=== PATIENT | female | born 1975 | race Caucasian/White ===

== ENCOUNTER 2021-02-05 10:06 | Outpatient (REF) | payer OTHER, MEDICAID, SELFPAY ==
[2021-02-05 11:17] LABS: MANUAL DIFF FLAG NO
[2021-02-05 11:28] LABS: Basophils Absolute Auto 0.1 X10*3/uL (0.0-0.2); Basophils Percent Auto 0.6 % (0-2); Eosinophils Absolute Auto 0.1 X10*3/uL (0.0-0.4); Eosinophils Percent Auto 1.1 % (0-4); Hematocrit 40.2 % (37-47); Hemoglobin 13.2 g/dl (12.0-16.0); Imm Gran Abs Auto 0.03 X10*3/uL (0.00-0.03); Imm Gran Pct Auto 0.3 % (0.0-0.4); Mean Corpuscular HGB Conc 32.8 g/dl (31.0-35.0); Mean Corpuscular Hemoglobin 29.6 pg (27.0-33.0); Mean Corpuscular Volume 90.1 fL (80-98); Mean Platelet Volume 9.7 fL (9.4-12.3); Monocytes Absolute Auto 0.8 X10*3/uL (0.1-1.2); Monocytes Percent Auto 6.9 % (2-11); Neutrophils Absolute Auto 8.3 X10*3/uL (2.0-8.3); Neutrophils Percent Auto 73.1 % (45-73); Platelet Count 368 X10*3/uL (160-400); Red Blood Count 4.46 X10*6/uL (4.20-5.50); Red Cell Distribution Width 12.7 % (11.0-16.0); White Blood Count 11.3 X10*3/uL (4.8-10.8)
[2021-02-05 11:43] LABS: Alanine Aminotransferase 16 U/L (0-31); Albumin Level 4.3 g/dL (3.5-5.0); Alkaline Phosphatase 102 U/L (39-117); Anion Gap 15 (12-20); Aspartate Amino Transferase 16 U/L (5-31); Bilirubin Direct 0.3 mg/dL (0.0-0.5); Bilirubin Total 0.6 mg/dL (0.0-1.0); Blood Urea Nitrogen 10 mg/dL (9-16); Calcium 9.2 mg/dL (8.4-10.2); Carbon Dioxide 25 mmol/L (22-29); Chloride 104 mmol/L (96-108); Estimated Glomerular Filt Rate > 60; Glucose Random 98 mg/dL (60-115); Potassium 4.5 mmol/L (3.3-5.1); Sodium 139 mmol/L (135-145); Total Protein 7.2 g/dL (6.5-8.0)
== END 2021-02-05 10:07 | disposition home or self-care (01) ==
LOC: HO.HMGCLDS 10:06
PROVIDERS: PCP Internal Medicine; Visit Provider Nurse Practitioner Family
DX: R10.9 Unspecified abdominal pain (principal)
CPT/HCPCS: 36415; 80048; 80076; 85025

== ENCOUNTER 2021-02-25 09:36 | Outpatient (REF) | payer OTHER, MEDICAID, SELFPAY ==
--- NOTE | ~2021-02-25 | XR_ITS ---
EXAMINATION: XR FOOT, RIGHT XR FOOT, LEFT CLINICAL INFORMATION: Right and left foot pain. COMPARISON: Right foot radiographs dated 06/28/2015 TECHNIQUE: AP, oblique, and lateral views of the right and left foot. FINDINGS: RIGHT FOOT: No acute fracture or dislocation. No joint space narrowing or marginal osteophytes. No osseous erosion. Plantar and dorsal calcaneal enthesophytes, increased when compared to the prior examination. LEFT FOOT: No acute fracture or dislocation. No joint space narrowing or marginal osteophytes. No osseous erosion. Plantar and dorsal calcaneal enthesophytes. XR/XR foot RT min 3V IMPRESSION: RIGHT FOOT: Plantar and dorsal calcaneal spurs, increased in prominence when compared to the prior examination. LEFT FOOT: Plantar and dorsal calcaneal spurs.
--- NOTE | ~2021-02-25 | XR_ITS ---
EXAMINATION: XR FOOT, RIGHT XR FOOT, LEFT CLINICAL INFORMATION: Right and left foot pain. COMPARISON: Right foot radiographs dated 06/28/2015 TECHNIQUE: AP, oblique, and lateral views of the right and left foot. FINDINGS: RIGHT FOOT: No acute fracture or dislocation. No joint space narrowing or marginal osteophytes. No osseous erosion. Plantar and dorsal calcaneal enthesophytes, increased when compared to the prior examination. LEFT FOOT: No acute fracture or dislocation. No joint space narrowing or marginal osteophytes. No osseous erosion. Plantar and dorsal calcaneal enthesophytes. XR/XR foot LT min 3V IMPRESSION: RIGHT FOOT: Plantar and dorsal calcaneal spurs, increased in prominence when compared to the prior examination. LEFT FOOT: Plantar and dorsal calcaneal spurs.
== END 2021-02-25 09:37 | disposition home or self-care (01) ==
LOC: HO.HMGCX 09:36
PROVIDERS: PCP Internal Medicine; Visit Provider Nurse Practitioner Family
DX: M79.672 Pain in left foot (principal); M79.671 Pain in right foot; M77.50 Other enthesopathy of unspecified foot and ankle
CPT/HCPCS: 73630

== ENCOUNTER 2021-03-06 10:35 | Outpatient (REF) | payer OTHER, MEDICAID, SELFPAY ==
[2021-03-06 14:42] LABS: C Reactive Protein 0.61 mg/dL (< or = 0.50); Cholesterol 193 mg/dL; HDL Cholesterol 57 mg/dL; LDL Cholesterol Calculated 100 mg/dl; Triglycerides 183 mg/dL
[2021-03-06 15:18] LABS: Erythrocyte Sedimentation Rate 16 MM/HR (0-20)
== END 2021-03-06 10:36 | disposition home or self-care (01) ==
LOC: HO.HMGCLDS 10:35
PROVIDERS: PCP Internal Medicine; Visit Provider Internal Medicine
DX: M19.90 Unspecified osteoarthritis, unspecified site (principal)
CPT/HCPCS: 36415; 80061; 85652; 86140; 86431

== ENCOUNTER 2021-03-25 12:00 | Outpatient (REF) | payer OTHER, MEDICAID, SELFPAY | END 2021-03-25 12:01 | disposition home or self-care (01) | LOC: HO.LNP 12:00 | PROVIDERS: Visit Provider Hospitalist | DX: M25.50 Pain in unspecified joint (principal); Z20.822 Contact with and (suspected) exposure to COVID-19 | CPT/HCPCS: U0003; U0005 ==

== ENCOUNTER 2021-04-04 14:08 | Outpatient (REF) | payer OTHER, MEDICAID, SELFPAY ==
[2021-04-04 17:22] LABS: TSH reflex Free T4 1.58 uIU/mL (0.32-4.0)
== END 2021-04-04 14:09 | disposition home or self-care (01) ==
LOC: HO.HMGCLDS 14:08
PROVIDERS: PCP Internal Medicine; Visit Provider Internal Medicine
DX: F41.1 Generalized anxiety disorder (principal)
CPT/HCPCS: 36415; 84443

== ENCOUNTER 2021-05-23 11:13 | Outpatient (REF) | payer OTHER, MEDICAID, SELFPAY ==
--- NOTE | ~2021-05-23 | MM_ITS ---
EXAMINATION: MM SCREENING DIGITAL BREAST TOMOSYNTHESIS, BILATERAL CLINICAL INFORMATION: Screening. Asymptomatic. The lifetime risk of breast cancer based on the Tyrer-Cuzick Model is 9%. COMPARISON: Outside mammography: 12/01/2017, 09/16/2016, 09/09/2016 ([facility]). TECHNIQUE: Digital breast tomosynthesis is performed in both the craniocaudal and mediolateral oblique views along with computer-aided detection (CAD). Synthesized 2D images are generated from the tomosynthesis. FINDINGS: The breasts are heterogeneously dense, which may obscure small masses (ACR BI-RADS breast composition Category c). There are no significant masses, abnormal calcifications, or other abnormalities. Parenchymal pattern is similar to prior outside exam. There is no developing density. The axilla and skin contours are unremarkable. No significant changes. MM/MM tomosynthesis screening BI IMPRESSION: No mammographic evidence of malignancy. ASSESSMENT: BI-RADS 1: Negative RECOMMENDATION: Routine annual mammography screening. This patient's information was entered into a reminder system with a target due date for their next mammogram.
== END 2021-05-23 11:14 | disposition home or self-care (01) ==
LOC: HO.MAMMO 11:13
PROVIDERS: Visit Provider Internal Medicine
DX: Z12.31 Encounter for screening mammogram for malignant neoplasm of breast (principal)
CPT/HCPCS: 77063; 77067

== ENCOUNTER 2021-10-01 08:57 | Outpatient (REF) | payer OTHER, MEDICAID, SELFPAY ==
[2021-10-01 11:33] LABS: MANUAL DIFF FLAG NO
[2021-10-01 11:40] LABS: Basophils Absolute Auto 0.1 X10*3/uL (0.0-0.2); Basophils Percent Auto 0.6 % (0-2); Eosinophils Absolute Auto 0.2 X10*3/uL (0.0-0.4); Eosinophils Percent Auto 1.5 % (0-4); Hematocrit 35.7 % (37.0-47.0); Hemoglobin 10.8 g/dl (12.0-16.0); Imm Gran Abs Auto 0.08 X10*3/uL (0.00-0.03); Imm Gran Pct Auto 0.6 % (0.0-0.4); Lymphocytes Absolute Auto 3.7 X10*3/uL (1.2-4.9); Lymphocytes Percent Auto 25.5 % (20-40); Mean Corpuscular HGB Conc 30.3 g/dl (31.0-35.0); Mean Corpuscular Hemoglobin 25.7 pg (27.0-33.0); Mean Corpuscular Volume 84.8 fL (80.0-98.0); Mean Platelet Volume 9.3 fL (9.4-12.3); Monocytes Percent Auto 7.2 % (2-11); Neutrophils Absolute Auto 9.3 x10*3/uL (2.0-8.3); Neutrophils Percent Auto 64.6 % (45-73); Platelet Count 485 X10*3/uL (160-400); Red Blood Count 4.21 X10*6/uL (4.20-5.50); Red Cell Distribution Width 14.6 % (11.0-16.0); White Blood Count 14.4 X10*3/uL (4.8-10.8)
[2021-10-01 12:01] LABS: Alanine Aminotransferase 13 U/L (0-31); Albumin Level 3.7 g/dL (3.5-5.0); Alkaline Phosphatase 88 U/L (39-117); Anion Gap 12 (12-20); Aspartate Amino Transferase 10 U/L (5-31); Bilirubin Total 0.5 mg/dL (0.0-1.0); Blood Urea Nitrogen 13 mg/dL (9-16); Calcium 9.1 mg/dL (8.4-10.2); Carbon Dioxide 25 mmol/L (22-29); Chloride 104 mmol/L (96-108); Estimated Glomerular Filt Rate > 60; Glucose Random 87 mg/dL (60-115); Potassium 4.2 mmol/L (3.3-5.1); Sodium 137 mmol/L (135-145)
[2021-10-01 12:08] LABS: Ferritin 5 ng/mL (10-250); TSH reflex Free T4 2.11 uIU/mL (0.32-4.0)
== END 2021-10-01 08:58 | disposition home or self-care (01) ==
LOC: HO.HMGCLDS 08:57
PROVIDERS: Visit Provider Internal Medicine
DX: F41.1 Generalized anxiety disorder (principal); N92.0 Excessive and frequent menstruation with regular cycle; M19.90 Unspecified osteoarthritis, unspecified site
CPT/HCPCS: 36415; 80053; 82728; 84443; 85025

== ENCOUNTER 2022-01-02 12:07 | Outpatient (REF) | payer OTHER, MEDICAID, SELFPAY ==
[2022-01-02 13:54] LABS: MANUAL DIFF FLAG NO
[2022-01-02 14:11] LABS: Basophils Absolute Auto 0.1 X10*3/uL (0.0-0.2); Basophils Percent Auto 0.4 % (0-2); Eosinophils Absolute Auto 0.1 X10*3/uL (0.0-0.4); Eosinophils Percent Auto 0.5 % (0-4); Hematocrit 39.5 % (37.0-47.0); Hemoglobin 12.5 g/dl (12.0-16.0); Imm Gran Abs Auto 0.08 X10*3/uL (0.00-0.03); Imm Gran Pct Auto 0.5 % (0.0-0.4); Lymphocytes Absolute Auto 2.1 X10*3/uL (1.2-4.9); Mean Corpuscular HGB Conc 31.6 g/dl (31.0-35.0); Mean Corpuscular Hemoglobin 28.2 pg (27.0-33.0); Mean Platelet Volume 9.6 fL (9.4-12.3); Monocytes Absolute Auto 0.8 X10*3/uL (0.1-1.2); Monocytes Percent Auto 4.8 % (2-11); Neutrophils Absolute Auto 13.1 x10*3/uL (2.0-8.3); Neutrophils Percent Auto 80.8 % (45-73); Platelet Count 456 X10*3/uL (160-400); Red Blood Count 4.44 X10*6/uL (4.20-5.50); Red Cell Distribution Width 14.1 % (11.0-16.0); White Blood Count 16.2 X10*3/uL (4.8-10.8)
[2022-01-02 14:32] LABS: Ferritin 11 ng/mL (10-250)
[2022-01-02 14:38] LABS: Vitamin B12 478 pg/mL (200-900)
[2022-01-08 12:16] LABS: Vitamin D 25-OH, D2 <4 ng/mL; Vitamin D 25-OH, D3 26 ng/mL; Vitamin D 25-OH, Total 26 ng/mL (30-100)
== END 2022-01-02 12:08 | disposition home or self-care (01) ==
LOC: HO.HMGCLDS 12:07
PROVIDERS: PCP Internal Medicine; Visit Provider Internal Medicine
DX: D50.9 Iron deficiency anemia, unspecified (principal); E55.9 Vitamin D deficiency, unspecified
CPT/HCPCS: 36415; 82306; 82607; 82728; 85025

== ENCOUNTER 2022-04-05 09:20 | Outpatient (REF) | payer BC, MEDICAID, SELFPAY ==
[2022-04-05 11:11] LABS: MANUAL DIFF FLAG NO
[2022-04-05 11:21] LABS: Basophils Absolute Auto 0.1 X10*3/uL (0.0-0.2); Basophils Percent Auto 0.6 % (0-2); Eosinophils Absolute Auto 0.2 X10*3/uL (0.0-0.4); Eosinophils Percent Auto 1.3 % (0-4); Hematocrit 41.6 % (37.0-47.0); Hemoglobin 13.2 g/dl (12.0-16.0); Imm Gran Abs Auto 0.05 X10*3/uL (0.00-0.03); Imm Gran Pct Auto 0.4 % (0.0-0.4); Lymphocytes Absolute Auto 3.5 X10*3/uL (1.2-4.9); Lymphocytes Percent Auto 26.9 % (20-40); Mean Corpuscular HGB Conc 31.7 g/dl (31.0-35.0); Mean Corpuscular Hemoglobin 29.1 pg (27.0-33.0); Mean Corpuscular Volume 91.6 fL (80.0-98.0); Mean Platelet Volume 9.7 fL (9.4-12.3); Monocytes Absolute Auto 0.8 X10*3/uL (0.1-1.2); Monocytes Percent Auto 6.2 % (2-11); Neutrophils Absolute Auto 8.4 x10*3/uL (2.0-8.3); Neutrophils Percent Auto 64.6 % (45-73); Platelet Count 408 X10*3/uL (160-400); Red Blood Count 4.54 X10*6/uL (4.20-5.50); Red Cell Distribution Width 15.7 % (11.0-16.0)
[2022-04-05 11:40] LABS: Alanine Aminotransferase 20 U/L (0-31); Albumin Level 4.1 g/dL (3.5-5.0); Alkaline Phosphatase 98 U/L (39-117); Anion Gap 15 (12-20); Aspartate Amino Transferase 15 U/L (5-31); Bilirubin Total 0.6 mg/dL (0.0-1.0); Blood Urea Nitrogen 16 mg/dL (9-16); Calcium 9.2 mg/dL (8.4-10.2); Carbon Dioxide 22 mmol/L (22-29); Chloride 105 mmol/L (96-108); Cholesterol 218 mg/dL; Estimated Glomerular Filt Rate > 60; Glucose Fasting 90 mg/dL (60-99); HDL Cholesterol 79 mg/dL; LDL Cholesterol Calculated 117 mg/dl; Potassium 4.3 mmol/L (3.3-5.1); Sodium 138 mmol/L (135-145); Total Protein 7.3 g/dL (6.5-8.0); Triglycerides 111 mg/dL
[2022-04-05 11:45] LABS: Ferritin 17 ng/mL (10-250)
[2022-04-07 05:38] LABS: Vitamin B12 425 pg/mL (200-900)
[2022-04-09 16:02] LABS: Vitamin D 25-OH, D2 <4 ng/mL; Vitamin D 25-OH, D3 32 ng/mL; Vitamin D 25-OH, Total 32 ng/mL (30-100)
== END 2022-04-05 09:21 | disposition home or self-care (01) ==
LOC: HO.HMGCLDS 09:20
PROVIDERS: PCP Internal Medicine; Visit Provider Internal Medicine
DX: Z00.01 Encounter for general adult medical examination with abnormal findings (principal); E55.9 Vitamin D deficiency, unspecified; D50.9 Iron deficiency anemia, unspecified; M06.9 Rheumatoid arthritis, unspecified; E66.09 Other obesity due to excess calories; F17.200 Nicotine dependence, unspecified, uncomplicated
CPT/HCPCS: 36415; 80053; 80061; 82306; 82607; 82728; 85025

== ENCOUNTER 2022-05-27 10:33 | Outpatient (REF) | payer BC, MEDICAID, SELFPAY ==
--- NOTE | ~2022-05-27 | MM_ITS ---
EXAMINATION: MM SCREENING DIGITAL BREAST TOMOSYNTHESIS, BILATERAL CLINICAL INFORMATION: Screening. Asymptomatic. The lifetime risk of breast cancer based on the Tyrer-Cuzick Model is 9%. COMPARISON: Mammography: 05/23/2021, outside mammography 12/01/2017, 09/16/2016, 09/09/2016 ([facility]) TECHNIQUE: Digital breast tomosynthesis is performed in both the craniocaudal and mediolateral oblique views along with computer-aided detection (CAD). Synthesized 2D images are generated from the tomosynthesis. FINDINGS: The breasts are heterogeneously dense, which may obscure small masses (ACR BI-RADS breast composition Category c). Breast tissue composition borders on average fibroglandular. Parenchymal pattern is similar to prior studies. No developing density or architectural abnormality. There are no significant masses, abnormal calcifications, or other abnormalities. Axilla and skin contours are unremarkable. MM/MM tomosynthesis screening BI IMPRESSION: No mammographic evidence of malignancy. ASSESSMENT: BI-RADS 1: Negative RECOMMENDATION: Routine annual mammography screening. This patient's information was entered into a reminder system with a target due date for their next mammogram.
== END 2022-05-27 10:34 | disposition home or self-care (01) ==
LOC: HO.MAMMO 10:33
PROVIDERS: PCP Internal Medicine; Visit Provider Internal Medicine
DX: Z12.31 Encounter for screening mammogram for malignant neoplasm of breast (principal)
CPT/HCPCS: 77063; 77067

== ENCOUNTER 2022-08-08 09:51 | Outpatient (REF) | payer BC, MEDICAID, SELFPAY ==
[2022-08-08 11:50] LABS: Alanine Aminotransferase 21 U/L (0-31); Albumin Level 4.1 g/dL (3.5-5.0); Alkaline Phosphatase 105 U/L (39-117); Anion Gap 14 (12-20); Aspartate Amino Transferase 14 U/L (5-31); Bilirubin Total 0.7 mg/dL (0.0-1.0); Blood Urea Nitrogen 10 mg/dL (9-16); Calcium 9.4 mg/dL (8.4-10.2); Carbon Dioxide 24 mmol/L (22-29); Chloride 104 mmol/L (96-108); Estimated Glomerular Filt Rate > 60; Glucose Random 89 mg/dL (60-115); Iron 63 mcg/dL (30-160); Percent Iron Saturation 19 % (15-50); Potassium 4.2 mmol/L (3.3-5.1); Sodium 138 mmol/L (135-145); Total Iron Binding Capacity 332 mcg/dL (228-428); Total Protein 7.1 g/dL (6.5-8.0); Unsaturated Iron Binding 269 ug/dL
[2022-08-08 12:11] LABS: TSH reflex Free T4 2.37 uIU/mL (0.32-4.0)
[2022-08-10 07:18] LABS: Follicle Stimulating Hormone 7.1 mIU/mL; Lutenizing Hormone 13.2 mIU/mL
[2022-08-14 14:28] LABS: Vitamin D 25-OH, D2 <4 ng/mL; Vitamin D 25-OH, D3 35 ng/mL; Vitamin D 25-OH, Total 35 ng/mL (30-100)
== END 2022-08-08 09:52 | disposition home or self-care (01) ==
LOC: HO.HMGCLDS 09:51
PROVIDERS: Visit Provider Internal Medicine
DX: M06.9 Rheumatoid arthritis, unspecified (principal); D64.9 Anemia, unspecified; E55.9 Vitamin D deficiency, unspecified; D50.9 Iron deficiency anemia, unspecified; N92.0 Excessive and frequent menstruation with regular cycle
CPT/HCPCS: 36415; 80053; 82306; 83001; 83002; 83540; 84443

== ENCOUNTER 2023-04-14 10:37 | Outpatient (AMB) | payer BC, MEDICAID, SELFPAY ==
[2023-04-14 10:41] VITALS: BP 142/98; PULSE 83; O2SAT 96; BMI 34.4
--- NOTE | 2023-04-14 10:41 | A.OFFPC_ITS ---
Vital Signs 04/14/23 10:41 04/14/23 10:58 Height 5 ft 3 in Weight 194 lb 6 oz BMI 34.4 BP 142/98 H 132/86 Blood Pressure Location Lt brachial Lt brachial Position Sitting Sitting Pulse 83 Pulse Source Pulse Oximeter Pulse Oximetry (%) 96 Oxygen Delivery Method Room Air Intake Visit Reasons: pe Allergies No Known Allergies Allergy (Verified 04/14/23 10:42) Medication List - Last Reconciled 04/14/23 by Darwin Diana MD ascorbic acid (vitamin C) mg PO cholecalciferol (vitamin D3) 50 mcg PO DAILY 90 days ferrous sulfate 324 mg PO BID 90 days leucovorin calcium 5 mg PO QWEEK methotrexate sodium 20 mg PO QWEEK Tobacco use date assessed: 04/14/23 Dental Screening Dental Screen Date: 04/14/23 Did you have a dental visit in the last 12 months?: No Did you have a dental problem in the last 6 months where you did not have access to dental care?: No Was dental information given to patient?: Patient has dentist HPI pe HPI Details Patient is 47-year-old female came in today for physical examination Patient have a history of rheumatoid arthritis she is being treated with methotrexate at arthritis treatment center [facility]. Her blood pressure was elevated when she came in today at 01:42 systolic we checked after 15 minutes and it came down. Patient have a iron deficiency anemia due to heavy periods She is due for labs. BMI is elevated at 34.4 patient is trying to lose weight. I offered her belt maker helper appointment today which she feels she does not need. Labs are needed fasting order placed. Follow-up 1 year for physical exam [facility] Social History Housing: [place] Patient Tobacco Use Status: Never used Tobacco e-Cigarette/Vaping Use: Never Used Second Hand Smoke Exposure: No service: No Current occupational status: unemployed Cognitive needs: No Hearing needs: No Vision needs: No Questionnaire PHQ-9 Over the last 2 weeks, how often have you been bothered by any of the following problems? 1. Little interest or pleasure in doing things: not at all 2. Feeling down, depressed, or hopeless: not at all 3. Trouble falling or staying asleep, or sleeping too much: not at all 4. Feeling tired or having little energy: not at all 5. Poor appetite or overeating: not at all 6. Feeling bad about yourself - or that you are a failure or have let yourself or your family down: not at all 7. Trouble concentrating on things, such as reading the newspaper or watching television: not at all 8. Moving or speaking so slowly that other people could have noticed. Or the opposite - being so fidgety or restless that you have been moving around a lot more than usual: not at all 9. Thoughts that you would be better off or of hurting yourself in some way: not at all Total score: 0 Depression Screening Interpretation: Negative Depression Screening Done: Yes 75016 - PHQ-9 Billing: Yes Source: Developed by Drs. James Rascon, Dianne Champagne, Martín Long and colleagues, with an educational aaron from [employer]. Thrive Questionnaire Date Thrive assessed: 04/14/23 I am a: Patient What is your living situation today?: I have a steady place to live Within the past 12 months, did the food you bought not last and you didn't have the money to get more?: Never true Within the past 12 months, did you worry whether your food would run out before you got money to buy more?: Never true Do you have trouble paying for medicines?: No Do you have trouble getting transportation to medical appointments?: No Do you have trouble paying your heating and electricity bill?: No Do you have trouble taking care of your child, family member or friend?: No Do you have trouble with day-to-day activities such as bathing, preparing meals, shopping, managing finances, etc.?: No Are you currently unemployed and looking for a job?: Yes Are you interested in more education?: No Currently or been in a relationship where the following occur: no concerns reported AUDIT C Alcohol Use Questionnaire (AUDIT-C) 1. How often do you have a drink containing alcohol?: Never 3. How often do you have six or more drinks on one occasion?: Never Total Score: 0 Score Reviewed/Action Taken: Yes MIKE-7 AMB Questionnaire MIKE-7 Date MIKE - 7 assessed: 04/14/23 Feeling nervous, anxious, or on edge: 0 = Not at all Not being able to stop or control worryin = Not at all Worrying too much about different things: 0 = Not at all Trouble relaxin = Not at all Being so restless that it is hard to sit still: 0 = Not at all Becoming easily annoyed or irritable: 0 = Not at all Feeling afraid as if something awful might happen: 0 = Not at all Total MIKE-7 score (0-4 normal; 5-9 mild; 10-14 moderate; 15-21 severe): 0 Source: Developed by Drs. James Rascon, Dianne Champagne, Martín Long and colleagues, with an educational aaron from [employer]. MIKE-7 Assessment Billing MIKE-7 Assessment Tool: MIKE-7 Assessment 84040 Review of Systems Const Denies chills, Denies fever(s) and Denies headache(s) Eyes Denies blurry vision ENT Denies headache(s), Denies nasal discharge, Denies nasal obstruction, Denies odynophagia and Denies sinus pain Card Denies chest pain at rest and Denies chest pain with activity Resp Denies cough and Denies hemoptysis GI Denies diarrhea, Denies odynophagia, Denies vomiting and Denies hematemesis Reports as per HPI Musc Denies abnormal gait Skin/Breast Reports as per HPI Neuro Denies Neuro-related abnormal movements, Denies Abnormal speech present, Denies abnormal gait, Denies headache(s) and Denies Sensory deficit (Neuro) Psych Denies mood swings and Denies paranoia Endo Reports as per HPI Khalif/Lymph Reports as per HPI Aller/Immun Reports as per HPI Physical exam (Primary Care) Vital Signs: Last Vital Signs Pulse 83 04/14/23 10:41 BP 132/86 04/14/23 10:58 Pulse Ox 96 04/14/23 10:41 Oxygen Delivery Method Room Air 04/14/23 10:41 BMI result Body Mass Index 34.4 Tobacco/Smoking Status: Tobacco use Status Tobacco use date assessed 04/14/23 04/14/23 10:44 Patient Tobacco Use Status Never used Tobacco 04/14/23 10:44 e-Cigarette/Vaping Use Never Used 04/14/23 10:44 PHQ-9: PHQ-9 Score PHQ-9: Total score 0 04/14/23 11:01 Depression Screening Interpretation: Negative Thrive Assessment: Date of Thrive Assessment Date Thrive assessed 04/14/23 04/14/23 11:02 Currently or been in a relationship where the following occur: no concerns reported Const General: cooperative, comfortable and no acute distress Orientation/consciousness: patient oriented x3 HENMT Head: Yes normocephalic and Yes atraumatic Eyes General: appearance normal, both eyes and all related structures Pupils: Equal, round and reactive pupils present EOM: EOMs intact bilaterally Neck Neck: Yes supple and No lymphadenopathy Thyroid: Thyroid normal Lymphatic: no lymphadenopathy noted Resp Effort & Inspection: normal respiratory effort and able to speak in complete sentences Auscultation: clear to auscultation bilaterally Cardio Heart sounds: S1 normal heart sound present and S2 normal heart sound present GI Palpation (GI): Soft to palpation and nontender Auscultation: normal bowel sounds General: Yes no CVA tenderness Back/Spine/Pelvis Back: no CVA tenderness Skin General skin exam: elasticity normal and turgor normal Neuro General: patient oriented x3 and gait normal Cranial nerves: Yes Equal, round and reactive pupils present Speech: No Abnormal speech present Sensory Exam: No Sensory deficit (Neuro) Coordination: tandem gait normal and Romberg test negative Extrem General: Yes normal exam except as noted and No edema Assessment and Plan Assessment & Plan (1) Encounter for general adult medical examination with abnormal findings: Code(s): Z00.01 - Encounter for general adult medical examination with abnormal findings (2) Obesity due to excess calories: Code(s): E66.09 - Other obesity due to excess calories Qualifiers: Body mass index: BMI 34.0-34.9 Obesity classification: adult class 1 (BMI 30 - 34.9) Serious obesity comorbidity presence: without serious comorbidity Qualified Code(s): E66.09 - Other obesity due to excess calories; Z68.34 - Body mass index [BMI] 34.0-34.9, adult (3) Rheumatoid arthritis: Code(s): M06.9 - Rheumatoid arthritis, unspecified Qualifiers: Rheumatoid arthritis location: multiple sites Rheumatoid factor pres ence: with rheumatoid factor Qualified Code(s): M05.79 - Rheumatoid arthritis with rheumatoid factor of multiple sites without organ or systems involvement (4) Anemia: Code(s): D64.9 - Anemia, unspecified Qualifiers: Anemia type: iron deficiency Iron deficiency anemia type: chronic blood loss Qualified Code(s): D50.0 - Iron deficiency anemia secondary to blood loss (chronic) (5) Vitamin D deficiency: Code(s): E55.9 - Vitamin D deficiency, unspecified (6) Iron deficiency anemia: Code(s): D50.9 - Iron deficiency anemia, unspecified Qualifiers: Iron deficiency anemia type: chronic blood loss Qualified Code(s): D50.0 - Iron deficiency anemia secondary to blood loss (chronic) (7) Heavy period: Code(s): N92.0 - Excessive and frequent menstruation with regular cycle Qualifiers: Menorrhagia type: with regular cycle Qualified Code(s): N92.0 - Excessive and frequent menstruation with regular cycle Plan Patient is 47-year-old female came in today for physical examination Patient have a history of rheumatoid arthritis she is being treated with methotrexate at arthritis treatment center [facility]. Her blood pressure was elevated when she came in today at 142 systolic we checked after 15 minutes and it came down. In 130 systolic, patient is prehypertensive Discussed low-salt diet and weight management, I would recommend that she start monitoring her blood pressure at home and keep a log. Patient have a iron deficiency anemia due to heavy periods , she has OBGYN She is due for labs. Mammogram appointment is coming up BMI is elevated at 34.4 patient is trying to lose weight. I offered her belt maker helper appointment today which she feels she does not need. Labs are needed fasting order placed. Follow-up 1 year for physical exam Orders: Orders Complete Blood Count Auto Diff Today D50.9 - Iron deficiency anemia, unspecified, D64.9 - Anemia, unspecified, E55.9 - Vitamin D deficiency, unspecified, E66.09 - Other obesity due to excess calories, M06.9 - Rheumatoid arthritis, unspecified, N92.0 - Excessive and frequent menstruation with regular cycle, Z00.01 - Encounter for general adult medical examination with abnormal findings Comprehensive [place]. Panel Fast Today D50.9 - Iron deficiency anemia, unspeci fied, D64.9 - Anemia, unspecified, E55.9 - Vitamin D deficiency, unspecified, E66.09 - Other obesity due to excess calories, M06.9 - Rheumatoid arthritis, unspecified, N92.0 - Excessive and frequent menstruation with regular cycle, Z00.01 - Encounter for general adult medical examination with abnormal findings Vitamin D 25-OH (D2 and D3) Today D50.9 - Iron deficiency anemia, unspecified, D64.9 - Anemia, unspecified, E55.9 - Vitamin D deficiency, unspecified, E66.09 - Other obesity due to excess calories, M06.9 - Rheumatoid arthritis, unspecified, N92.0 - Excessive and frequent menstruation with regular cycle, Z00.01 - Encounter for general adult medical examination with abnormal findings Ferritin Today D50.9 - Iron deficiency anemia, unspecified, D64.9 - Anemia, unspecified, E55.9 - Vitamin D deficiency, unspecified, E66.09 - Other obesity due to excess calories, M06.9 - Rheumatoid arthritis, unspecified, N92.0 - Excessive and frequent menstruation with regular cycle, Z00.01 - Encounter for general adult medical examination with abnormal findings Lipid Panel Today D50.9 - Iron deficiency anemia, unspecified, D64.9 - Anemia, unspecified, E55.9 - Vitamin D deficiency, unspecified, E66.09 - Other obesity due to excess calories, M06.9 - Rheumatoid arthritis, unspecified, N92.0 - Excessive and frequent menstruation with regular cycle, Z00.01 - Encounter for general adult medical examination with abnormal findings Coding Level of Care Code Est [facility] Care 40-64y([id number]) Diagnoses Encounter for general adult medical examination with abnormal findings Z00.01 Class 1 obesity due to excess calories without serious comorbidity with body mass index (BMI) of 34.0 to 34.9 in adult E66.09; Z68.34 Body mass index: BMI 34.0-34.9 Obesity classification: adult class 1 (BMI 30 - 34.9) Serious obesity comorbidity presence: without serious comorbidity Rheumatoid arthritis involving multiple sites with positive rheumatoid factor M05.79 Rheumatoid arthritis location: multiple sites Rheumatoid factor presence: with rheumatoid factor Iron deficiency anemia due to chronic blood loss D50.0 Anemia type: iron deficiency Iron deficiency anemia type: chronic blood loss Vitamin D deficiency E55.9 Iron deficiency anemia due to chronic blood loss D50.0 Iron deficiency anemia type: chronic blood loss Menorrhagia with regular cycle N92.0 Menorrhagia type: with regular cycle Additional Codes MIKE-7 Assessment Billing - MIKE-7 Assessment Tool: MIKE-7 Assessment 62105 ([id number])
[2023-04-14 10:58] VITALS: BP 132/86
== END 2023-04-14 11:02 | disposition home or self-care (01) ==
PROVIDERS: Visit Provider Internal Medicine
DX: Z00.01 Encounter for general adult medical examination with abnormal findings (principal); E66.09 Other obesity due to excess calories; Z68.34 Body mass index [BMI] 34.0-34.9, adult; M05.79 Rheumatoid arthritis with rheumatoid factor of multiple sites without organ or systems involvement; D50.0 Iron deficiency anemia secondary to blood loss (chronic); E55.9 Vitamin D deficiency, unspecified; N92.0 Excessive and frequent menstruation with regular cycle
CPT/HCPCS: 99396

== ENCOUNTER 2023-04-14 11:04 | Outpatient (REF) | payer BC, MEDICAID, SELFPAY ==
[2023-04-14 13:20] LABS: MANUAL DIFF FLAG NO
[2023-04-14 13:43] LABS: Basophils Absolute Auto 0.1 X10*3/uL (0.0-0.2); Basophils Percent Auto 0.8 % (0-2); Eosinophils Absolute Auto 0.2 X10*3/uL (0.0-0.4); Eosinophils Percent Auto 2.2 % (0-4); Hematocrit 41.4 % (37.0-47.0); Hemoglobin 13.4 g/dl (12.0-16.0); Imm Gran Abs Auto 0.03 X10*3/uL (0.00-0.03); Imm Gran Pct Auto 0.3 % (0.0-0.4); Lymphocytes Absolute Auto 2.4 X10*3/uL (1.2-4.9); Lymphocytes Percent Auto 22.7 % (20-40); Mean Corpuscular HGB Conc 32.4 g/dl (31.0-35.0); Mean Corpuscular Hemoglobin 30.6 pg (27.0-33.0); Mean Corpuscular Volume 94.5 fL (80.0-98.0); Mean Platelet Volume 10.2 fL (9.4-12.3); Monocytes Absolute Auto 0.8 X10*3/uL (0.1-1.2); Monocytes Percent Auto 7.4 % (2-11); Neutrophils Percent Auto 66.6 % (45-73); Platelet Count 406 X10*3/uL (160-400); Red Blood Count 4.38 X10*6/uL (4.20-5.50); Red Cell Distribution Width 13.2 % (11.0-16.0); White Blood Count 10.6 X10*3/uL (4.8-10.8)
[2023-04-14 13:53] LABS: Alanine Aminotransferase 14 U/L (0-31); Alkaline Phosphatase 91 U/L (39-117); Anion Gap 12 (12-20); Aspartate Amino Transferase 16 U/L (5-31); Bilirubin Total 0.6 mg/dL (0.0-1.0); Blood Urea Nitrogen 10 mg/dL (9-16); Calcium 9.4 mg/dL (8.4-10.2); Carbon Dioxide 24 mmol/L (22-29); Chloride 104 mmol/L (96-108); Cholesterol 199 mg/dL (<200); Estimated Glomerular Filt Rate > 60; Glucose Fasting 92 mg/dL (60-99); HDL Cholesterol 61 mg/dL (>40); LDL Cholesterol Calculated 116 mg/dL (<100); Potassium 4.3 mmol/L (3.3-5.1); Sodium 136 mmol/L (135-145); Total Protein 7.3 g/dL (6.5-8.0); Triglycerides 111 mg/dL (<150)
[2023-04-14 14:14] LABS: Ferritin 42 ng/mL (10-250)
[2023-04-18 16:22] LABS: Vitamin D 25-OH, D2 <4 ng/mL; Vitamin D 25-OH, D3 38 ng/mL; Vitamin D 25-OH, Total 38 ng/mL (30-100)
== END 2023-04-14 11:05 | disposition home or self-care (01) ==
LOC: HO.HMGCLDS 11:04
PROVIDERS: PCP Internal Medicine; Visit Provider Internal Medicine
DX: Z00.01 Encounter for general adult medical examination with abnormal findings (principal); E66.09 Other obesity due to excess calories; M06.9 Rheumatoid arthritis, unspecified; D64.9 Anemia, unspecified; E55.9 Vitamin D deficiency, unspecified; D50.9 Iron deficiency anemia, unspecified; N92.0 Excessive and frequent menstruation with regular cycle
CPT/HCPCS: 36415; 80053; 80061; 82306; 82728; 85025

== ENCOUNTER → 2023-06-02 10:30 | Outpatient (BNV) | payer BC, MEDICAID, SELFPAY | PROVIDERS: PCP Internal Medicine; Visit Provider Radiology Diagnostic Radiology | DX: Z12.31 Encounter for screening mammogram for malignant neoplasm of breast (principal) | CPT/HCPCS: 77063; 77067 ==

== ENCOUNTER 2023-06-02 10:35 | Outpatient (REF) | payer BC, MEDICAID, SELFPAY ==
--- NOTE | ~2023-06-02 | MM_ITS ---
EXAMINATION: MM SCREENING DIGITAL BREAST TOMOSYNTHESIS, BILATERAL CLINICAL INFORMATION: Screening. Asymptomatic. COMPARISON: Mammography: 05/27/2022, 05/23/2021, outside mammography 12/01/2017, 09/16/2016, 09/09/2016 [facility] TECHNIQUE: Digital breast tomosynthesis is performed in both the craniocaudal and mediolateral oblique views along with computer-aided detection (CAD). Synthesized 2D images are generated from the tomosynthesis. FINDINGS: The breasts are heterogeneously dense, which may obscure small masses (ACR BI-RADS breast composition Category c). There are no suspicious masses, suspicious grouped calcifications, or areas of architectural distortion in either breast. The parenchymal pattern is stable from prior exams. No skin or axillary changes. MM/MM tomosynthesis screening BI IMPRESSION: No mammographic evidence of malignancy. ASSESSMENT: BI-RADS BI-RADS 1 - Negative RECOMMENDATION: Routine annual mammography screening. 1 year F/U This examination should not preclude the clinical evaluation of a suspicious palpable abnormality. This patient's information was entered into a reminder system with a target due date for their next mammogram.
== END 2023-06-02 10:36 | disposition home or self-care (01) ==
LOC: HO.MAMMO 10:35
PROVIDERS: PCP Internal Medicine; Visit Provider Internal Medicine
DX: Z12.31 Encounter for screening mammogram for malignant neoplasm of breast (principal)
CPT/HCPCS: 77063; 77067

== ENCOUNTER 2023-07-28 12:46 | Outpatient (AMB) | payer BC, MEDICAID, SELFPAY ==
[2023-07-28 12:50] VITALS: BP 122/70; PULSE 93; O2SAT 97; BMI 34.0
--- NOTE | 2023-07-28 12:50 | A.OFFPC_ITS ---
Vital Signs 3 07/28/23 12:50 Height 5 ft 3 in Weight 192 lb BMI 34.0 BP 122/70 Blood Pressure Location Lt brachial Position Sitting Pulse 93 Pulse Source Pulse Oximeter Pulse Oximetry (%) 97 Oxygen Delivery Method Room Air Intake Visit Reasons: Lt breast lump Intake Note: Pt is here today for a sick visit. Pt c/o lump on L breast that its painful a little. Allergies No Known Allergies Allergy (Verified 07/28/23 12:53) Medication List - Last Reconciled 07/28/23 by Darwin Diana MD ascorbic acid (vitamin C) mg PO cholecalciferol (vitamin D3) 50 mcg PO DAILY 90 days ferrous sulfate 324 mg PO BID 90 days leucovorin calcium 5 mg PO QWEEK methotrexate sodium 20 mg PO QWEEK Tobacco use date assessed: 07/28/23 Dental Screening Dental Screen Date: 07/28/23 Did you have a dental visit in the last 12 months?: No Did you have a dental problem in the last 6 months where you did not have access to dental care?: No Was dental information given to patient?: Patient declined HPI Lt breast lump 2 HPI0 Details Patient is a 47-year-old female came in today to be for lump left breast that she noticed a day before menstrual cycle started Patient says that her dog bump into her breast and she felt pain so she palpated. There is no nipple discharge there is no fever no chills Mammogram was May of last year that was benign On examination patient have firm lump 01:00 o'clock left breast which is tender to pressure I am ordering ultrasound for the patient to further evaluate PFSH Social History Housing: House Patient Tobacco Use Status: Never used Tobacco e-Cigarette/Vaping Use: Never Used Second Hand Smoke Exposure: No service: No Current occupational status: unemployed Cognitive needs: No Hearing needs: No Vision needs: No Questionnaire Thrive Questionnaire Date Thrive assessed: 04/14/23 AUDIT C Alcohol Use Questionnaire (AUDIT-C) 1. How often do you have a drink containing alcohol?: Never 3. How often do you have six or more drinks on one occasion?: Never Total Score: 0 IMKE-7 AMB Questionnaire MIKE-7 Date MIKE - 7 assessed: 04/14/23 Source: Developed by Drs. James Rascon, Dianne Champagne, Martín Long and colleagues, with an educational aaron from [employer]. Review of Systems Const Denies chills and Denies fever(s) ENT Denies epistaxis and Denies nasal discharge Card Denies chest pain Resp Denies chest congestion, Denies cough and Denies hemoptysis GI Denies diarrhea and Denies nausea Skin/Breast Denies rash Neuro Reports no additional complaints Psych Reports no additional complaints Endo Reports no additional complaints Physical exam (Primary Care) Vital Signs: Last Vital Signs Pulse 93 07/28/23 12:50 BP 122/70 07/28/23 12:50 Pulse Ox 97 07/28/23 12:50 Oxygen Delivery Method Room Air 07/28/23 12:50 BMI result Body Mass Index 34.0 Tobacco/Smoking Status: Tobacco use Status Tobacco use date assessed 07/28/23 07/28/23 12:54 Patient Tobacco Use Status Never used Tobacco 07/28/23 12:54 e-Cigarette/Vaping Use Never Used 07/28/23 12:54 Thrive Assessment: Date of Thrive Assessment Date Thrive assessed 04/14/23 07/28/23 12:54 Const General: cooperative, comfortable and no acute distress Orientation/consciousness: patient oriented x3 HENMT Head: Yes normocephalic Eyes General: appearance normal, both eyes and all related structures Neck Neck: Yes supple Chest Chest/axillae images: 2 1. Tender lump 01:00 o'clock left breast Resp Effort & Inspection: normal respiratory effort, no cough and no stridor Skin General skin exam: turgor normal Neuro General: patient oriented x3, tone normal and moves all extremities Extrem Right lower extremity: no edema Left lower extremity: no edema Assessment and Plan Assessment & Plan (1) Painful lumpy left breast: Code(s): N64.4 - Mastodynia; N63.20 - Unspecified lump in the left breast, unspecified quadrant Plan Patient is a 47-year-old female came in today to be for lump left breast that she noticed a day before menstrual cycle started Patient says that her dog bump into her breast and she felt pain so she palpated. There is no nipple discharge there is no fever no chills Mammogram was May of last year that was benign On examination patient have firm lump 01:00 o'clock left breast which is tender to pressure I am ordering ultrasound for the patient to further evaluate Orders: Orders 2 US breast LT complete Today N63.20 - Unspecified lump in the left breast, unspecified quadrant, N64.4 - Mastodynia Coding Level of Care Code Est Pt Level 4 (15557) Diagnoses Painful lumpy left breast N64.4; N63.20
== END 2023-07-28 13:59 | disposition home or self-care (01) ==
PROVIDERS: PCP Internal Medicine; Visit Provider Internal Medicine
DX: N64.4 Mastodynia (principal); N63.21 Unspecified lump in the left breast, upper outer quadrant
CPT/HCPCS: 99214

== ENCOUNTER → 2023-08-04 13:30 | Outpatient (BNV) | payer BC, MEDICAID, SELFPAY | PROVIDERS: PCP Internal Medicine; Visit Provider Radiology Diagnostic Radiology | DX: N63.25 Unspecified lump in the left breast, overlapping quadrants (principal) | CPT/HCPCS: 76642 ==

== ENCOUNTER 2023-08-04 13:31 | Outpatient (REF) | payer BC, MEDICAID, SELFPAY ==
--- NOTE | ~2023-08-04 | US_ITS ---
EXAMINATION: US BREAST LIMITED, LEFT ULTRASOUND: CLINICAL INFORMATION: Tender, palpable lump in the 3:00 region of the left breast, 7 cm from the nipple. Patient describes pain when her puppy walked on her breast recently. When she left her hand in the location of the pain, she reports feeling a lump. COMPARISON: This study is correlated with a normal screening mammogram from 06/02/2023 and prior mammograms dating back to 2017. TECHNIQUE: Targeted sonographic evaluation was performed using a high frequency linear transducer. Selected archived documentation. FINDINGS: LEFT BREAST: Sonography of the entire upper outer quadrant of the left breast including the 3:00 position was performed. There are no abnormalities. US/US breast LT limited mamm only IMPRESSION: No mammographic evidence of malignancy. No sonographic correlates with the palpable mass. Clinical follow-up is advised. OVERALL ASSESSMENT: Ultrasound: BI-RADS 1 - Negative RECOMMENDATION: 1. Patient should be managed based on the clinical impression. 2. Otherwise, routine annual screening mammography. Results were provided to the patient at time of visit by the technologist. This patient's information was entered into a reminder system with a target due date for their next mammogram.
== END 2023-08-04 13:32 | disposition home or self-care (01) ==
LOC: HO.MAMMO 13:31
PROVIDERS: PCP Internal Medicine; Visit Provider Internal Medicine
DX: N64.4 Mastodynia (principal); N63.25 Unspecified lump in the left breast, overlapping quadrants
CPT/HCPCS: 76642; 77061; 77065

== ENCOUNTER 2024-05-04 10:38 | Outpatient (AMB) | payer BC, MEDICAID, SELFPAY ==
--- NOTE | 2024-05-04 10:42 | A.OFFPC_ITS ---
Vital Signs 05/04/24 10:43 Height 5 ft 3 in Weight 191 lb 8 oz BMI 33.9 BP 118/72 Blood Pressure Location Rt brachial Position Sitting Pulse 82 Pulse Source Pulse Oximeter Pulse Oximetry (%) 99 Oxygen Delivery Method Room Air Intake Visit Reasons: Annual PE Allergies No Known Allergies Allergy (Verified 05/04/24 10:47) Medication List - Last Reconciled 05/04/24 by Darwin Diana MD leucovorin calcium 5 mg PO QWEEK meloxicam 7.5 mg PO DAILY methotrexate sodium 7.5 mg PO QWEEK Tobacco use date assessed: 05/04/24 Dental Screening Dental Screen Date: 05/04/24 Did you have a dental visit in the last 12 months?: Yes Did you have a dental problem in the last 6 months where you did not have access to dental care?: No Was dental information given to patient?: Patient has dentist HPI Annual PE HPI Details Patient is 48 year-old female came in today for physical examination Mammogram was July of this year Colonoscopy, patient does not want to have colonoscopy she is requesting a Cologuard test which I have ordered Pap smear up-to-date, OBGYN visit was early this year [facility] in [place] [employer] She has developed tinea corporis left shoulder for that I have sent selenium sulfide lotion Patient have a history of rheumatoid arthritis she is being treated with methotrexate at arthritis treatment center [facility]. Her hemoglobin came back normal last year, she has slightly elevated platelet count which is stable She is due for labs. BMI is elevated patient is trying to lose weight Labs from last year reviewed Vital signs stable Follow-up 1 year [facility] Social History Housing: House Patient Tobacco Use Status: Never used Tobacco e-Cigarette/Vaping Use: Never Used Second Hand Smoke Exposure: No service: No Current occupational status: unemployed Cognitive needs: No Hearing needs: No Vision needs: No Questionnaire PHQ-9 Over the last 2 weeks, how often have you been bothered by any of the following problems? 1. Little interest or pleasure in doing things: not at all 2. Feeling down, depressed, or hopeless: not at all 3. Trouble falling or staying asleep, or sleeping too much: not at all 4. Feeling tired or having little energy: not at all 5. Poor appetite or overeating: not at all 6. Feeling bad about yourself - or that you are a failure or have let yourself or your family down: not at all 7. Trouble concentrating on things, such as reading the newspaper or watching television: not at all 8. Moving or speaking so slowly that other people could have noticed. Or the opposite - being so fidgety or restless that you have been moving around a lot more than usual: not at all 9. Thoughts that you would be better off or of hurting yourself in some way: not at all Total score: 0 Depression Screening Interpretation: Negative Depression Screening Done: Yes 89733 - PHQ-9 Billing: Yes Source: Developed by Drs. James Rascon, Dianne Champagne, Martín Long and colleagues, with an educational aaron from [employer]. Thrive Questionnaire Date Thrive assessed: 05/04/24 I am a: Patient What is your living situation today?: I have a steady place to live Within the past 12 months, did the food you bought not last and you didn't have the money to get more?: Never true Within the past 12 months, did you worry whether your food would run out before you got money to buy more?: Never true Do you have trouble paying for medicines?: No Do you have trouble getting transportation to medical appointments?: No Do you have trouble paying your heating and electricity bill?: No Do you have trouble taking care of your child, family member or friend?: No Do you have trouble with day-to-day activities such as bathing, preparing meals, shopping, managing finances, etc.?: No Are you currently unemployed and looking for a job?: I choose not to answer this question Are you interested in more education?: No Please select the resources that you would like help with: None Currently or been in a relationship where the following occur: I choose not to answer THRIVE Score: 0 AUDIT C Alcohol Use Questionnaire (AUDIT-C) 1. How often do you have a drink containing alcohol?: Never 3. How often do you have six or more drinks on one occasion?: Never Total Score: 0 Score Reviewed/Action Taken: Yes MIKE-7 AMB Questionnaire MIKE-7 Date MIKE - 7 assessed: 05/04/24 Feeling nervous, anxious, or on edge: 0 = Not at all Not being able to stop or control worryin = Not at all Worrying too much about different things: 0 = Not at all Trouble relaxin = Not at all Being so restless that it is hard to sit still: 0 = Not at all Becoming easily annoyed or irritable: 0 = Not at all Feeling afraid as if something awful might happen: 0 = Not at all Total MIKE-7 score (0-4 normal; 5-9 mild; 10-14 moderate; 15-21 severe): 0 Source: Developed by Drs. James Rascon, Dianne Champagne, Martín Long and colleagues, with an educational aaron from [employer]. MIKE-7 Assessment Billing MIKE-7 Assessment Tool: MIKE-7 Assessment 00468 Review of Systems Const Denies chills, Denies fever(s) and Denies headache(s) Eyes Denies blurry vision ENT Denies headache(s), Denies nasal discharge, Denies nasal obstruction, Denies odynophagia and Denies sinus pain Card Denies chest pain at rest and Denies chest pain with activity Resp Denies cough and Denies hemoptysis GI Denies diarrhea, Denies odynophagia, Denies vomiting and Denies hematemesis Reports as per HPI Musc Denies abnormal gait Skin/Breast Reports as per HPI Neuro Denies Neuro-related abnormal movements, Denies Abnormal speech present, Denies abnormal gait, Denies headache(s) and Denies Sensory deficit (Neuro) Psych Denies mood swings and Denies paranoia Endo Reports as per HPI Khalif/Lymph Reports as per HPI Aller/Immun Reports as per HPI Physical exam (Primary Care) Vital Signs: Last Vital Signs Pulse 82 05/04/24 10:43 BP 118/72 05/04/24 10:43 Pulse Ox 99 05/04/24 10:43 Oxygen Delivery Method Room Air 05/04/24 10:43 BMI result Body Mass Index 33.9 Tobacco/Smoking Status: Tobacco use Status Tobacco use date assessed 07/28/23 05/04/24 10:44 Patient Tobacco Use Status Never used Tobacco 05/04/24 10:44 e-Cigarette/Vaping Use Never Used 05/04/24 10:44 PHQ-9: PHQ-9 Score PHQ-9: Total score 0 05/04/24 10:44 Depression Screening Interpretation: Negative Thrive Assessment: Date of Thrive Assessment Date Thrive assessed 04/14/23 05/04/24 10:44 Currently or been in a relationship where the following occur: I choose not to answer Const General: cooperative, comfortable and no acute distress Orientation/consciousness: patient oriented x3 HENMT Head: Yes normocephalic and Yes atraumatic Eyes General: appearance normal, both eyes and all related structures Pupils: Equal, round and reactive pupils present EOM: EOMs intact bilaterally Neck Neck: Yes supple and No lymphadenopathy Thyroid: Thyroid normal Lymphatic: no lymphadenopathy noted Resp Effort & Inspection: normal respiratory effort and able to speak in complete sentences Auscultation: clear to auscultation bilaterally Cardio Heart sounds: S1 normal heart sound present and S2 normal heart sound present GI Palpation (GI): Soft to palpation and nontender Auscultation: normal bowel sounds General: Yes no CVA tenderness Back/Spine/Pelvis Back: no CVA tenderness Skin Other: Small patchy scaly rash left shoulder posteriorly General skin exam: elasticity normal and turgor normal Neuro General: patient oriented x3 and gait normal Cranial nerves: Yes Equal, round and reactive pupils present Speech: No Abnormal speech present Sensory Exam: No Sensory deficit (Neuro) Coordination: tandem gait normal and Romberg test negative Extrem General: Yes normal exam except as noted and No edema Coding Level of Care Code Est Pt Level 3 (08600) Est Pt Prev Care 40-64y(29795) Diagnoses Encounter for general adult medical examination with abnormal findings Z00.01 Tinea corporis B35.4 Class 1 obesity due to excess calories without serious comorbidity with body mass index (BMI) of 34.0 to 34.9 in adult E66.09; Z68.34 Body mass index: BMI 34.0-34.9 Obesity classification: adult class 1 (BMI 30 - 34.9) Serious obesity comorbidity presence: without serious comorbidity Vitamin D deficiency E55.9 Rheumatoid arthritis involving multiple sites with positive rheumatoid factor M05.79 Rheumatoid arthritis location: multiple sites Rheumatoid factor presence: with rheumatoid factor Menorrhagia with regular cycle N92.0 Menorrhagia type: with regular cycle Additional Codes MIKE-7 Assessment Billing - MIKE-7 Assessment Tool: MIKE-7 Assessment 24181 ([id number]) Assessment & Plan Assessment & Plan (1) Encounter for general adult medical examination with abnormal findings: Code(s): Z00.01 - Encounter for general adult medical examination with abnormal findings Category: Medical (2) Tinea corporis: Code(s): B35.4 - Tinea corporis Category: Medical (3) Obesity due to excess calories: Code(s): E66.09 - Other obesity due to excess calories Category: Medical Qualifiers: Body mass index: BMI 34.0-34.9 Obesity classification: adult class 1 (BMI 30 - 34.9) Serious obesity comorbidity presence: without serious comorbidity Qualified Code(s): E66.09 - Other obesity due to excess calories; Z68.34 - Body mass index [BMI] 34.0-34.9, adult (4) Vitamin D deficiency: Code(s): E55.9 - Vitamin D deficiency, unspecified Category: Medical (5) Rheumatoid arthritis: Code(s): M06.9 - Rheumatoid arthritis, unspecified Category: Medical Qualifiers: Rheumatoid arthritis location: multiple sites Rheumatoid factor presence: with rheumatoid factor Qualified Code(s): M05.79 - Rheumatoid arthritis with rheumatoid factor of multiple sites without organ or systems involvement (6) Heavy period: Code(s): N92.0 - Excessive and frequent menstruation with regular cycle Category: Medical Qualifiers: Menorrhagia type: with regular cycle Qualified Code(s): N92.0 - Excessive and frequent menstruation with regular cycle Plan Patient is 48 year-old female came in today for physical examination Mammogram was July of this year Colonoscopy, patient does not want to have colonoscopy she is requesting a Cologuard test which I have ordered Pap smear up-to-date, OBGYN visit was early this year [facility] in [place] [employer] She has developed tinea corporis left shoulder for that I have sent selenium sulfide lotion Patient have a history of rheumatoid arthritis she is being treated with methotrexate at arthritis treatment center [facility]. Her hemoglobin came back normal last year, she has slightly elevated platelet count which is stable She is due for labs. BMI is elevated patient is trying to lose weight Labs from last year reviewed Vital signs stable Follow-up 1 year Orders: Orders Lipid Panel Today E55.9 - Vitamin D deficiency, unspecified, E66.09 - Other obesity due to excess calories, M05.79 - Rheumatoid arthritis with rheumatoid factor of multiple sites without organ or systems involvement, Z00.01 - Encounter for general adult medical examination with abnormal findings, Z68.34 - Body mass index [BMI] 34.0-34.9, adult Vitamin D 25-OH (D2 and D3) Today E55.9 - Vitamin D deficiency, unspecified, E66.09 - Other obesity due to excess calories, M05.79 - Rheumatoid arthritis with rheumatoid factor of multiple sites without organ or systems involvement, Z00.01 - Encounter for general adult medical examination with abnormal findings, Z68.34 - Body mass index [BMI] 34.0-34.9, adult Ferritin Today N92.0 - Excessive and frequent menstruation with regular cycle Complete Blood Count Auto Diff Today E55.9 - Vitamin D deficiency, unspecified, E66.09 - Other obesity due to excess calories, M05.79 - Rheumatoid arthritis with rheumatoid factor of multiple sites without organ or systems involvement, Z00.01 - Encounter for general adult medical examination with abnormal findings, Z68.34 - Body mass index [BMI] 34.0-34.9, adult Comprehensive [place]. Panel Fast Today E55.9 - Vitamin D deficiency, unspecified, E66.09 - Other obesity due to excess calories, M05.79 - Rheumatoid arthritis with rheumatoid factor of multiple sites without organ or systems involvement, Z00.01 - Encounter for general adult medical examination with abnormal findings, Z68.34 - Body mass index [BMI] 34.0-34.9, adult TSH reflex Free T4 Today E55.9 - Vitamin D deficiency, unspecified, E66.09 - Other obesity due to excess calories, M05.79 - Rheumatoid arthritis with rheum atoid factor of multiple sites without organ or systems involvement, Z00.01 - Encounter for general adult medical examination with abnormal findings, Z68.34 - Body mass index [BMI] 34.0-34.9, adult Medications: New selenium sulfide 2.5% Apply over the rash once a day for 2 weeks 1 appl topical DAILY 2 weeks 120 mL 0RF
[2024-05-04 10:43] VITALS: BP 118/72; PULSE 82; O2SAT 99; BMI 33.9
== END 2024-05-04 10:58 | disposition home or self-care (01) ==
PROVIDERS: PCP Internal Medicine; Visit Provider Internal Medicine
DX: Z00.00 Encounter for general adult medical examination without abnormal findings (principal); M05.79 Rheumatoid arthritis with rheumatoid factor of multiple sites without organ or systems involvement; E66.09 Other obesity due to excess calories; Z68.34 Body mass index [BMI] 34.0-34.9, adult; B35.4 Tinea corporis; E55.9 Vitamin D deficiency, unspecified; N92.0 Excessive and frequent menstruation with regular cycle

== ENCOUNTER → 2024-05-04 10:38 | Outpatient (BNVA) | payer BC, MEDICAID, SELFPAY | PROVIDERS: PCP Internal Medicine; Visit Provider Internal Medicine | DX: Z00.01 Encounter for general adult medical examination with abnormal findings (principal); B35.4 Tinea corporis; E66.09 Other obesity due to excess calories; Z68.34 Body mass index [BMI] 34.0-34.9, adult; E55.9 Vitamin D deficiency, unspecified; M05.79 Rheumatoid arthritis with rheumatoid factor of multiple sites without organ or systems involvement; N92.0 Excessive and frequent menstruation with regular cycle | CPT/HCPCS: 96127 ==

== ENCOUNTER 2024-05-04 10:58 | Outpatient (REF) | payer BC, MEDICAID, SELFPAY ==
[2024-05-04 13:25] LABS: MANUAL DIFF FLAG NO
[2024-05-04 13:32] LABS: Basophils Absolute Auto 0.1 X10*3/uL (0.0-0.2); Basophils Percent Auto 0.8 % (0-2); Eosinophils Absolute Auto 0.2 X10*3/uL (0.0-0.4); Eosinophils Percent Auto 2.9 % (0-4); Hematocrit 35.8 % (37.0-47.0); Hemoglobin 11.8 g/dl (12.0-16.0); Imm Gran Abs Auto 0.02 X10*3/uL (0.00-0.03); Imm Gran Pct Auto 0.3 % (0.0-0.4); Lymphocytes Absolute Auto 2.3 X10*3/uL (1.2-4.9); Lymphocytes Percent Auto 28.8 % (20-40); Mean Corpuscular Hemoglobin 30.6 pg (27.0-33.0); Mean Corpuscular Volume 92.7 fL (80.0-98.0); Monocytes Absolute Auto 0.7 X10*3/uL (0.1-1.2); Monocytes Percent Auto 8.4 % (2-11); Neutrophils Absolute Auto 4.6 x10*3/uL (2.0-8.3); Neutrophils Percent Auto 58.8 % (45-73); Platelet Count 382 X10*3/uL (160-400); Red Blood Count 3.86 X10*6/uL (4.20-5.50); Red Cell Distribution Width 13.5 % (11.0-16.0); White Blood Count 7.9 X10*3/uL (4.8-10.8)
[2024-05-04 14:03] LABS: Alanine Aminotransferase 16 U/L (0-31); Albumin Level 3.9 g/dL (3.5-5.0); Alkaline Phosphatase 94 U/L (39-117); Anion Gap 10 (12-20); Aspartate Amino Transferase 22 U/L (5-31); Bilirubin Total 0.6 mg/dL (0.0-1.0); Blood Urea Nitrogen 11 mg/dL (9-16); Calcium 9.1 mg/dL (8.4-10.2); Carbon Dioxide 26 mmol/L (22-29); Chloride 107 mmol/L (96-108); Cholesterol 178 mg/dL (<200); Estimated Glomerular Filt Rate > 60; Glucose Fasting 99 mg/dL (60-99); HDL Cholesterol 61 mg/dL (>40); LDL Cholesterol Calculated 95 mg/dL (<100); Potassium 4.7 mmol/L (3.3-5.1); Sodium 138 mmol/L (135-145); Total Protein 6.7 g/dL (6.5-8.0); Triglycerides 114 mg/dL (<150)
[2024-05-04 14:09] LABS: Ferritin 20 ng/mL (10-250); TSH reflex Free T4 1.67 uIU/mL (0.32-4.0)
[2024-05-08 16:59] LABS: Vitamin D 25-OH, D2 <4 ng/mL; Vitamin D 25-OH, D3 27 ng/mL; Vitamin D 25-OH, Total 27 ng/mL (30-100)
== END 2024-05-04 10:59 | disposition home or self-care (01) ==
LOC: HO.HMGCLDS 10:58
PROVIDERS: PCP Internal Medicine; Visit Provider Internal Medicine
DX: Z00.01 Encounter for general adult medical examination with abnormal findings (principal); E66.09 Other obesity due to excess calories; Z68.34 Body mass index [BMI] 34.0-34.9, adult; E55.9 Vitamin D deficiency, unspecified; M05.79 Rheumatoid arthritis with rheumatoid factor of multiple sites without organ or systems involvement; N92.0 Excessive and frequent menstruation with regular cycle
CPT/HCPCS: 36415; 80053; 80061; 82306; 82728; 84443; 85025

== ENCOUNTER 2024-07-27 07:59 | Outpatient (AMB) | payer BC, MEDICAID, SELFPAY ==
[2024-07-27 08:11] VITALS: BP 122/80; PULSE 111; TEMP 37.4; O2SAT 98; BMI 34.2
--- NOTE | 2024-07-27 08:11 | MHC.OFFWIV ---
Intake Vital Signs 07/27/24 08:11 Height 5 ft 3 in Weight 193 lb BMI 34.2 BP 122/80 Blood Pressure Location Rt brachial Position Sitting Pulse 111 H Pulse Source Pulse Oximeter Temp 99.3 F Temp Source Oral Pulse Oximetry (%) 98 Intake Visit Reasons: EP cough, congestion, sinus pressure Intake Note: pt is here for cough, congestion, sinus pressure for 8 days Patient Tobacco Use Status: Never used Tobacco Allergies No Known Allergies Allergy (Verified 07/27/24 08:15) Do you need a note to return to daycare/school/sports/work: No HPI HPI Comments History of Present Illness Details She presents to office with cough She said ongoing approx 8 days + sinus pressure, congestion, cough She said felt hot this am; temp 99.3 No chills No medicine taken She rates the pain as 8/10 + ST without ear pain + post nasal drip + phlegm No SOB or CP PFSH Social History Housing: House Patient Tobacco Use Status: Never used Tobacco e-Cigarette/Vaping Use: Never Used Second Hand Smoke Exposure: No service: No Current occupational status: unemployed Cognitive needs: No Hearing needs: No Vision needs: No Review of Systems Const Denies chills, Reports fever(s) (felt warm this am) and Reports headache(s) (sinus with teeth pain associated; upper gums) Eyes Denies change in vision ENT Denies otalgia, Reports headache(s) (sinus with teeth pain associated; upper gums), Reports nasal congestion, Reports sinus pain, Reports sinus pressure and Reports sore throat Card Denies chest pain, Denies syncope and Denies dyspnea Resp Reports cough and Denies dyspnea Musc Denies myalgias Neuro Denies syncope and Reports headache(s) (sinus with teeth pain associated; upper gums) Physical Exam Vital Signs: Last Vital Signs Temp 99.3 F 07/27/24 08:11 Pulse 111 H 07/27/24 08:11 BP 122/80 07/27/24 08:11 Pulse Ox 98 07/27/24 08:11 BMI result Body Mass Index 34.2 General: Non-toxic, NAD. Speaking full sentences. Skin: Warm dry throughout Eye: EOMI HENT: Airway patent. Uvula midline. No pharyngeal erythema or edema. No MENTAL HEALTH CLINICIAN. Bilateral canals clear. TM non-erythematous, non-bulging. No TM perforation or hemotympanum noted. + sinus tenderness to palpation bilateral maxillary sinuses Lymph: None palpated neck/submandibular region Respiratory: Faint wheeze at bases, R>L. No rales or rhonchi. No acessory muscle use Cardiac: tachycardic. No murmur MSK: Full ROM extremities. Neurology: Alert. No aphasia or facial droop. Gait without abnormality Psych: Good mood and affect Assessment & Plan Assessment & Plan (1) Bacterial sinusitis: Code(s): J32.9 - Chronic sinusitis, unspecified; B96.89 - Other specified bacterial agents as the cause of diseases classified elsewhere Plan: Patient seen and evaluated. + sinusitis on exam No concern for PNA Due to Mexthotrexate interaction with Augmentin, will cover with Zpack Patient gave verbal understanding and had no additional questions or concerns at time of discharge All questions answered Medications: New benzonatate 200 mg PO BID-TID PRN 20 caps 0RF cough azithromycin For 250 mg dose pack: take 500 mg today (day 1), then 250 mg for 4 days (days 2-5) PO 6 tabs 0RF Coding Level of Care Code Est Pt Level 3 (63628) Diagnoses Bacterial sinusitis J32.9; B96.89
== END 2024-07-27 08:52 | disposition home or self-care (01) ==
PROVIDERS: PCP Internal Medicine; Visit Provider Physician Assistant
DX: J32.9 Chronic sinusitis, unspecified (principal); B96.89 Other specified bacterial agents as the cause of diseases classified elsewhere

== ENCOUNTER 2024-08-04 07:59 | Outpatient (AMB) | payer BC, MEDICAID, SELFPAY ==
[2024-08-04 08:09] VITALS: BP 122/80; PULSE 98; TEMP 36.7; O2SAT 98
--- NOTE | 2024-08-04 08:09 | AM.OFFWIN_ITS ---
Intake Vital Signs 08/04/24 08:09 Weight 192 lb BP 122/80 Blood Pressure Location Rt brachial Position Sitting Pulse 98 Pulse Source Pulse Oximeter Temp 98.0 F Temp Source Oral Pulse Oximetry (%) 98 Oxygen Delivery Method Room Air Intake Visit Reasons: EP loss of voice, congestion, cough Intake Note: Patient here for cough,congestion and loss of voice that has been going on for about 1 week. Patient Tobacco Use Status: Never used Tobacco Allergies No Known Allergies Allergy (Verified 08/04/24 08:11) Do you need a note to return to daycare/school/sports/work: No HPI HPI Comments History of Present Illness Details 48 y/o female patient who presents to [facility] walk in clinic with c/o URI symptoms. Pt c/o hoarseness, Cough, wheezing and SOB for 1 week now. She has been using Mucinex with minimal relief. [facility] Medical History (Updated 08/04/24 @ 08:35 by Jenn Rowland NP) Cough Social History Housing: House Patient Tobacco Use Status: Never used Tobacco e-Cigarette/Vaping Use: Never Used Second Hand Smoke Exposure: No service: No Current occupational status: unemployed Cognitive needs: No Hearing needs: No Vision needs: No Review of Systems Const All systems reviewed & are unremarkable except as noted in HPI and below Physical Exam Vital Signs: Last Vital Signs Temp 98.0 F 08/04/24 08:09 Pulse 98 08/04/24 08:09 BP 122/80 08/04/24 08:09 Pulse Ox 98 08/04/24 08:09 Oxygen Delivery Method Room Air 08/04/24 08:09 Const General: cooperative and no acute distress Nutritional Appearance: overweight Orientation/consciousness: patient oriented x3 HEENT Head: Yes normocephalic Ears: external ears normal and TM's normal bilaterally Face and sinus: Yes sinuses nontender Mouth: moist mucous membranes Resp Effort & Inspection: normal respiratory effort and able to speak in complete sentences Auscultation: clear to auscultation bilaterally, no crackles, no rales, rhonchi and wheezes Cardio Heart sounds: S1 normal heart sound present and S2 normal heart sound present Neuro General: patient oriented x3 Assessment & Plan Assessment & Plan (1) Cough: Code(s): R05.9 - Cough, unspecified Qualifiers: Cough type: acute Qualified Code(s): R05.1 - Acute cough Plan: Acetaminophen for pain relief Warm fluids with honey Rest Medications: New benzonatate 100 mg PO TID 90 caps 0RF R05.1 - Acute cough albuterol sulfate 90 mcg/actuation 2 puffs inhalation Q4-6H PRN 6.7 grams 0RF shortness of breath or wheezing R05.1 - Acute cough doxycycline hyclate 100 mg PO BID 10 days 20 caps 0RF R05.1 - Acute cough Coding Level of Care Code Est Pt Level 3 (51484) Diagnoses Acute cough R05.1 Cough type: acute Time Spent (min) 15
== END 2024-08-04 08:26 | disposition home or self-care (01) ==
PROVIDERS: PCP Internal Medicine; Visit Provider Nurse Practitioner Family
DX: R05.1 Acute cough (principal)

== ENCOUNTER → 2024-08-04 07:59 | Outpatient (BNVA) | payer BC, MEDICAID, SELFPAY | PROVIDERS: PCP Internal Medicine; Visit Provider Nurse Practitioner Family ==

== ENCOUNTER 2025-05-10 12:37 | Outpatient (AMB) | payer BC, MEDICAID, SELFPAY ==
--- NOTE | 2025-05-10 12:39 | A.OFFPC_ITS ---
Vital Signs 05/10/25 12:41 05/10/25 15:11 Height 5 ft 3 in Weight 201 lb BMI 35.6 BP 150/90 H 138/88 Blood Pressure Location Lt brachial Position Sitting Respiration 16 Pulse 86 Pulse Source Pulse Oximeter Temp 97.7 F Temp Source Oral Pulse Oximetry (%) 96 Oxygen Delivery Method Room Air Intake Visit Reasons: Annual PE Allergies No Known Allergies Allergy (Verified 05/10/25 12:44) Medication List - Last Reconciled 05/10/25 by Darwin Diana MD leucovorin calcium 5 mg PO QWEEK levalbuterol tartrate 45 mcg/actuation 2 puffs inhalation Q4-6H meloxicam 7.5 mg PO DAILY methotrexate sodium 7.5 mg PO QWEEK Tobacco use date assessed: 05/04/24 Dental Screening Dental Screen Date: 05/04/24 HPI Annual PE HPI Details History of Present Illness The patient is a 49 year old female presenting for a physical exam. Rheumatoid Arthritis: - The patient has a history of rheumatoi d arthritis and is managed by a sneller hand at the [facility]. - She takes methotrexate and meloxicam f or this condition. - Despite treatment, she reports continu ed aches and pains, with only slight improvement since starting methotrexate. - She experiences pain in her left elbow , particularly when moving, and has morning stiffness and swelling in her hands and feet. Elevated Blood Pressure: - The patient's blood pressure was eleva elliot to 150/90 mmHg, compared to 122/80 mmHg in July of this year. - She attributes the high reading to str ess from rushing to the appointment. - A repeat measurement was 138/88 mmHg. - The patient reports that her blood pre ssure readings are always normal at her sneller hand's office and she previously monitored it at home but has stopped. Menorrhagia and Anemia: - The patient takes iron supplements due to a history of heavy menstrual periods, which are ongoing. - Her last hemoglobin level was 11.8 g/d L. Vitamin D Deficiency: - Lab work from April of last year rev ealed a slightly low vitamin D level. - She continues to take vitamin D supple ments. Skin Lesions: - The patient has a spot on her right br east that she has had for a while and believes is changing color. - She also reports multiple spots on her back of different sizes and colors, and redness with small veins on her face that flush, particularly in the morning or in the cold. Cyst of Toe and Ankle Swelling: - She reports a non-painful bump on her right toe that has been present for about six months. Medical History: - Rheumatoid arthritis, managed by a [facility] umatologist. - Vitamin D deficiency, noted on labs fr om April of last year. - Anemia, with a past hemoglobin of 11.8 g/dL, secondary to menorrhagia. Social History: - Alcohol: Denies alcohol use. Health Maintenance - Breast Cancer Screening: Last mammogra m was in July 2023. - Gynecological Exam: Has not had one year but has an appointment scheduled for October. - Colon Cancer Screening: Has not had a colonoscopy; a Cologuard order will be placed. - Immunizations: Has not yet received va ccines; advised to consult her sneller hand about the flu vaccine. - Skin Cancer Screening: Advised to see a spanish interpreter annually for skin checks. [place] [facility] - Followed by a sneller hand at the [facility] for rheumatoid arthritis, with next appointment on May 31. - Has a spanish interpreter but has not yet sc heduled a yearly appointment. 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 Patient Instructions - Go for the fasting blood tests that [place] ve been ordered for you. - Continue taking your vitamin D and iro n supplements. - An order for a Cologuard test has been placed for you to complete. - Try to check your blood pressure at [facility] from time to time. - Make an appointment to see a dermatolo gist for your skin spots and facial redness. - For stiff and painful joints around yo ur hands, you can use hot water to help relax the muscles. - For the bump on your toe, you can try wrapping it with an JARED bandage to apply some pressure. If it becomes painful or enlarged let me know - Ask your sneller hand about taking f olic acid with your methotrexate. - Ask your sneller hand if it is safe for you to get a flu shot. - Schedule your appointments for your ne xt physical exam, ACID CRANE OPERATOR visit, and dermatology visit. Review of Systems - General: No fever no chills - Neurological: No headaches no dizzin ess - Ear nose throat: No sore throat no hearing difficulty no ear pain - Cardiovascular: No syncope, no chest pain - Gastrointestinal: No nausea vomiting or diarrhea - Endocrine: No polyuria polydipsia no heat intolerance - Genitourinary: No dysuria - Skin: No new complaints Physical Exam General: Cooperative, healthy appearing, comfortable, no acute distress Orientation: Patient oriented x3 Head: Normal to inspection Ears: Within normal limit visually Nose: Normal external nose present Face and sinus: Normal facial exam Eyes: Appearance normal, extraocular movement intact pupils reactive Neck: Normal visual inspection and supple Respiratory: Normal respiratory effort and able to speak in complete sentences. Clear to auscultation, no stridor Cardiovascular: S1 and S2 RRR GI: Normal to inspection. Soft to palpation and nontender Skin: Turgor normal, no acute findings. Noted spot on right breast looks like seborrheic keratosis, multiple spots on back of different sizes and colors, redness on face with small veins possibly related to rheumatoid arthritis Neuro: Patient oriented x3, motor sensory intact, balance intact, tandem pass Extremities: Normal to inspection. Noted cyst on pick toe. Soft round nontender without any skin erythema size of Pea , anterior over distal phalanx . [facility] Medical History Cough Social History Housing: House Patient Tobacco Use Status: Never used Tobacco e-Cigarette/Vaping Use: Never Used Second Hand Smoke Exposure: No service: No Current occupational status: unemployed Cognitive needs: No Hearing needs: No Vision needs: No Questionnaire PHQ-9 Over the last 2 weeks, how often have you been bothered by any of the following problems? 1. Little interest or pleasure in doing things: not at all 2. Feeling down, depressed, or hopeless: not at all 3. Trouble falling or staying asleep, or sleeping too much: not at all 4. Feeling tired or having little energy: not at all 5. Poor appetite or overeating: not at all 6. Feeling bad about yourself - or that you are a failure or have let yourself or your family down: not at all 7. Trouble concentrating on things, such as reading the newspaper or watching television: not at all 8. Moving or speaking so slowly that other people could have noticed. Or the opposite - being so fidgety or restless that you have been moving around a lot more than usual: not at all 9. Thoughts that you would be better off or of hurting yourself in some way: not at all Total score: 0 Depression Screening Interpretation: Negative Depression Screening Done: Yes 36113 - PHQ-9 Billing: Yes Source: Developed by Drs. James Rascon, Dianne Champagne, Martín Long and colleagues, with an educational aaron from [employer]. Thrive Questionnaire Date Thrive assessed: 05/04/24 I am a: Patient What is your living situation today?: I have a steady place to live Within the past 12 months, did the food you bought not last and you didn't have the money to get more?: Never true Within the past 12 months, did you worry whether your food would run out before you got money to buy more?: Never true Do you have trouble paying for medicines?: No Do you have trouble getting transportation to medical appointments?: No Do you have trouble paying your heating and electricity bill?: No Do you have trouble taking care of your child, family member or friend?: No Do you have trouble with day-to-day activities such as bathing, preparing meals, shopping, managing finances, etc.?: Yes Are you currently unemployed and looking for a job?: Yes Are you interested in more education?: No Please select the resources that you would like help with: None Currently or been in a relationship where the following occur: I choose not to answer THRIVE Score: 0 AUDIT C Alcohol Use Questionnaire (AUDIT-C) 1. How often do you have a drink containing alcohol?: Never Total Score: 0 MIKE-7 AMB Questionnaire MIKE-7 Date MIKE - 7 assessed: 05/04/24 Feeling nervous, anxious, or on edge: 0 = Not at all Not being able to stop or control worryin = Not at all Worrying too much about different things: 0 = Not at all Trouble relaxin = Not at all Being so restless that it is hard to sit still: 0 = Not at all Becoming easily annoyed or irritable: 0 = Not at all Feeling afraid as if something awful might happen: 0 = Not at all Total MIKE-7 score (0-4 normal; 5-9 mild; 10-14 moderate; 15-21 severe): 0 Source: Developed by Drs. James Rascon, Dianne Champagne, Martín Long and colleagues, with an educational aaron from [employer]. MIKE-7 Assessment Billing MIKE-7 Assessment Tool: MIKE-7 Assessment 36817 Physical exam (Primary Care) Vital Signs: Last Vital Signs Temp 97.7 F 05/10/25 12:41 Pulse 86 05/10/25 12:41 Resp 16 05/10/25 12:41 BP 150/90 H 05/10/25 12:41 Pulse Ox 96 05/10/25 12:41 Oxygen Delivery Method Room Air 05/10/25 12:41 BMI result Body Mass Index 35.6 Tobacco/Smoking Status: Tobacco use Status Tobacco use date assessed 05/04/24 05/10/25 12:45 Patient Tobacco Use Status Never used Tobacco 05/10/25 12:45 e-Cigarette/Vaping Use Never Used 05/10/25 12:45 PHQ-9: PHQ-9 Score PHQ-9: Total score 0 05/10/25 13:15 Depression Screening Interpretation: Negative Thrive Assessment: Date of Thrive Assessment Date Thrive assessed 05/04/24 05/10/25 12:45 Currently or been in a relationship where the following occur: I choose not to answer Coding Level of Care Code Est Pt Level 4 (81462) Est Pt Prev Care 40-64y(90535) Diagnoses Encounter for general adult medical examination with abnormal findings Z00.01 Facial flushing R23.2 Mucous cyst of toe M67.479 Tired R53.83 Numerous skin moles D22.9 Seborrheic keratosis L82.1 Rheumatoid arthritis involving multiple sites with positive rheumatoid factor M05.79 Rheumatoid arthritis location: multiple sites Rheumatoid factor presence: with rheumatoid factor Class 1 obesity due to excess calories without serious comorbidity with body mass index (BMI) of 34.0 to 34.9 in adult E66.09; Z68.34 Body mass index: BMI 34.0-34.9 Obesity classification: adult class 1 (BMI 30 - 34.9) Serious obesity comorbidity presence: without serious comorbidity Vitamin D deficiency E55.9 Additional Codes PHQ-9 - 43653 - PHQ-9 Billing: Yes ([id number]) MIKE-7 Assessment Billing - MIKE-7 Assessment Tool: MIKE-7 Assessment 92114 ([id number]) Assessment & Plan Assessment & Plan (1) Encounter for general adult medical examination with abnormal findings: Code(s): Z00.01 - Encounter for general adult medical examination with abnormal findings Category: Medical (2) Facial flushing: Code(s): R23.2 - Flushing Category: Medical (3) Mucous cyst of toe: Code(s): M67.479 - Ganglion, unspecified ankle and foot Category: Medical (4) Tired: Code(s): R53.83 - Other fatigue Category: Medical (5) Numerous skin moles: Code(s): D22.9 - Melanocytic nevi, unspecified Category: Medical (6) Seborrheic keratosis: Code(s): L82.1 - Other seborrheic keratosis Category: Medical (7) Rheumatoid arthritis: Code(s): M06.9 - Rheumatoid arthritis, unspecified Category: Medical Qualifiers: Rheumatoid arthritis location: multiple sites Rheumatoid factor presence: with rheumatoid factor Qualified Code(s): M05.79 - Rheumatoid arthritis with rheumatoid factor of multiple sites without organ or systems involvement (8) Obesity due to excess calories: Code(s): E66.09 - Other obesity due to excess calories Category: Medical Qualifiers: Body mass index: BMI 34.0-34.9 Obesity classification: adult class 1 (BMI 30 - 34.9) Serious obesity comorbidity presence: without serious comorbidity Qualified Code(s): E66.09 - Other obesity due to excess calories; Z68.34 - Body mass index [BMI] 34.0-34.9, adult (9) Vitamin D deficiency: Code(s): E55.9 - Vitamin D deficiency, unspecified Category: Medical Plan Rheumatoid Arthritis: - The patient has a history of rheumatoid arthritis and is managed by a sneller hand at the [facility]. - She takes methotrexate and meloxicam for this condition. - Despite treatment, she reports continued aches and pains, with only slight improvement since starting methotrexate. - She experiences pain in her left elbow, particularly when moving, and has morning stiffness and swelling in her hands and feet. Elevated Blood Pressure: - The patient's blood pressure was elevated to 150/90 mmHg, compared to 122/80 mmHg in July of this year. - She attributes the high reading to stress from rushing to the appointment. - A repeat measurement was 138/88 mmHg. - The patient reports that her blood pressure readings are always normal at her sneller hand's office and she previously monitored it at home but has stopped. Menorrhagia and Anemia: - The patient takes iron supplements due to a history of heavy menstrual periods, which are ongoing. - Her last hemoglobin level was 11.8 g/dL. Vitamin D Deficiency: - Lab work from April last year revealed a slightly low vitamin D level. - She continues to take vitamin D supplements. Skin Lesions: - The patient has a spot on her right breast that she has had for a while and believes is changing color. - She also reports multiple spots on her back of different sizes and colors, and redness with small veins on her face that flush, particularly in the morning or in the cold. Cyst of Toe and Ankle Swelling: - She reports a non-painful bump on her right toe that has been present for about six months. Medical History: - Rheumatoid arthritis, managed by a sneller hand. - Vitamin D deficiency, noted on labs from April last . - Anemia, with a past hemoglobin of 11.8 g/dL, secondary to menorrhagia. Social History: - Alcohol: Denies alcohol use. Health Maintenance - Breast Cancer Screening: Last mammogram was in July 2023. - Gynecological Exam: Has not had one this year but has an appointment scheduled for October. - Colon Cancer Screening: Has not had a colonoscopy; a Cologuard order will be placed. - Immunizations: Has not yet received vaccines; advised to consult her sneller hand about the flu vaccine. - Skin Cancer Screening: Advised to see a spanish interpreter annually for skin checks. [place] [facility] - Followed by a sneller hand at the [facility] for rheumatoid arthritis, with next appointment on May 31. - Has a spanish interpreter but has not yet scheduled a yearly appointment. 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 Patient Instructions - Go for the fasting blood tests that have been ordered for you. - Continue taking your vitamin D and iron supplements. - An order for a Cologuard test has been placed for you to complete. - Try to check your blood pressure at home from time to time. - Make an appointment to see a spanish interpreter for your skin spots and facial redness. - For stiff and painful joints around your hands, you can use hot water to help relax the muscles. - For the bump on your toe, you can try wrapping it with an JARED bandage to apply some pressure. If it becomes painful or enlarged let me know - Ask your sneller hand about taking folic acid with your methotrexate. - Ask your sneller hand if it is safe for you to get a flu shot. - Schedule your appointments for your next physical exam, ACID CRANE OPERATOR visit, and dermatology visit. Orders: Orders Complete Blood Count Auto Diff Today E55.9 - Vitamin D deficiency, unspecified, E66.09 - Other obesity due to excess calories, M05.79 - Rheumatoid arthritis with rheumatoid factor of multiple sites without organ or systems involvement, Z00.01 - Encounter for general adult medical examination with abnormal findings, Z68.34 - Body mass index [BMI] 34.0-34.9, adult Lipid Panel Today E55.9 - Vitamin D deficiency, unspecified, E66.09 - Other obesity due to excess calories, M05.79 - Rheumatoid arthritis with rheumatoid factor of multiple sites without organ or systems involvement, Z00.01 - Encounter for general adult medical examination with abnormal findings, Z68.34 - Body mass index [BMI] 34.0-34.9, adult Vitamin D 25-OH (D2 and D3) Today E55.9 - Vitamin D deficiency, unspecified, E66.09 - Other obesity due to excess calories, M05.79 - Rheumatoid arthritis with rheumatoid factor of multiple sites without organ or systems involvement, Z00.01 - Encounter for general adult medical examination with abnormal findings, Z68.34 - Body mass index [BMI] 34.0-34.9, adult Vitamin B12 Today R53.83 - Other fatigue Ferritin Today R53.83 - Other fatigue Comprehensive [place]. Panel Fast Today E55.9 - Vitamin D deficiency, unspecified, E66.09 - Other obesity due to excess calories, M05.79 - Rheumatoid arthritis with rheumatoid factor of multiple sites without organ or systems involvement, Z00.01 - Encounter for general adult medical examination with abnormal findings, Z68.34 - Body mass index [BMI] 34.0-34.9, adult TSH reflex Free T4 Today E55.9 - Vitamin D deficiency, unspecified, E66.09 - Other obesity due to excess calories, M05.79 - Rheumatoid arthritis with rheumatoid factor of multiple sites without organ or systems involvement, Z00.01 - Encounter for general adult medical examination with abnormal findings, Z68.34 - Body mass index [BMI] 34.0-34.9, adult Referrals Cologuard Test Z12.11 - Encounter for screening for malignant neoplasm of colon, Z12.12 - Encounter for screening for malignant neoplasm of rectum
[2025-05-10 12:41] VITALS: BP 150/90; PULSE 86; RESP 16; TEMP 36.5; O2SAT 96; BMI 35.6
[2025-05-10 15:11] VITALS: BP 138/88
== END 2025-05-10 13:12 | disposition home or self-care (01) ==
LOC: HO.HMCC 12:38
PROVIDERS: PCP Internal Medicine; Visit Provider Internal Medicine
DX: Z00.00 Encounter for general adult medical examination without abnormal findings (principal); M05.79 Rheumatoid arthritis with rheumatoid factor of multiple sites without organ or systems involvement; R23.2 Flushing; R53.83 Other fatigue; D22.9 Melanocytic nevi, unspecified; L82.1 Other seborrheic keratosis; E66.09 Other obesity due to excess calories; Z68.34 Body mass index [BMI] 34.0-34.9, adult; E55.9 Vitamin D deficiency, unspecified

== ENCOUNTER → 2025-05-10 12:37 | Outpatient (BNVA) | payer BC, MEDICAID, SELFPAY | PROVIDERS: PCP Internal Medicine; Visit Provider Internal Medicine | DX: Z00.01 Encounter for general adult medical examination with abnormal findings (principal); M06.9 Rheumatoid arthritis, unspecified; R03.0 Elevated blood-pressure reading, without diagnosis of hypertension; D64.9 Anemia, unspecified; N92.0 Excessive and frequent menstruation with regular cycle; E55.9 Vitamin D deficiency, unspecified; R23.2 Flushing; M67.479 Ganglion, unspecified ankle and foot; R53.83 Other fatigue; D22.9 Melanocytic nevi, unspecified; L82.1 Other seborrheic keratosis; M05.79 Rheumatoid arthritis with rheumatoid factor of multiple sites without organ or systems involvement; E66.09 Other obesity due to excess calories; Z68.34 Body mass index [BMI] 34.0-34.9, adult | CPT/HCPCS: 96127 ==

== ENCOUNTER 2025-07-07 10:55 | Outpatient (REF) | payer BC, MEDICAID, SELFPAY ==
--- NOTE | ~2025-07-07 | XR_ITS ---
EXAMINATION: X-ray bilateral elbows CLINICAL INFORMATION: Elbow pain COMPARISON: None TECHNIQUE: Left elbow 3 views. Right elbow 3 views. FINDINGS: Left elbow: No acute fracture, dislocation or suspicious bony lesion is identified.. No significant arthritic changes or erosion. No significant joint effusion appreciated. No abnormal soft tissue calcification. There is a 0.7 cm opacity projected over anterior soft tissues of the distal humerus, seen on the lateral view. This is not seen on the additional views. Right elbow: No acute fracture, dislocation is identified No significant arthritic change or erosions. No significant joint effusion appreciated. Rounded lucency in the region of the radial tuberosity, could reflect bone demineralization versus bony lesion No abnormal soft tissue calcification. No radiopaque foreign body. XR/XR Elbow Attila min 3V IMPRESSION: *Left elbow: *No acute osseous findings. *0.7 cm rounded opacity projected over the anterior soft tissues of the distal humerus, only seen on one view. Clinically correlate. Follow-up/further imaging as clinically indicated. Right elbow: *No acute osseous findings. *Relative lucency in the region of the radial tuberosity could reflect relative bone demineralization versus indeterminate bony lesion. Clinically correlate. Follow-up/further imaging as clinically indicated. Electronically signed by: Darrian Deng MD 07/07/2025 04:05 PM [facility]
== END 2025-07-07 10:56 | disposition home or self-care (01) ==
LOC: HO.HMGCX 10:55
PROVIDERS: PCP Internal Medicine; Visit Provider Internal Medicine
DX: M25.521 Pain in right elbow (principal)
CPT/HCPCS: 73080

== ENCOUNTER → 2025-07-07 10:58 | Outpatient (BNV) | payer BC, MEDICAID, SELFPAY | PROVIDERS: PCP Internal Medicine; Visit Provider Radiology Diagnostic Ultrasound | DX: M79.89 Other specified soft tissue disorders (principal) | CPT/HCPCS: 73080 ==

== ENCOUNTER 2025-07-10 10:27 | Outpatient (REF) | payer BC, MEDICAID, SELFPAY ==
[2025-07-10 13:59] LABS: MANUAL DIFF FLAG NO
[2025-07-10 14:10] LABS: Hematocrit 38.4 % (37.0-47.0); Hemoglobin 12.2 g/dl (12.0-16.0); Imm Gran Abs Auto 0.03 X10*3/uL (0.00-0.03); Imm Gran Pct Auto 0.3 % (0.0-0.4); Lymphocytes Absolute Auto 1.7 X10*3/uL (1.2-4.9); Mean Corpuscular HGB Conc 31.8 g/dl (31.0-35.0); Mean Corpuscular Hemoglobin 29.3 pg (27.0-33.0); Mean Corpuscular Volume 92.3 fL (80.0-98.0); NRBC Abs Auto 0.000 X10*3/uL (0.0-0.012); NRBC Pct Auto 0.0 /100WBC (0.0-0.2); Platelet Count 376 X10*3/uL (160-400); Red Blood Count 4.16 X10*6/uL (4.20-5.50); White Blood Count 9.6 X10*3/uL (4.8-10.8)
[2025-07-10 14:45] LABS: Alanine Aminotransferase 16 U/L (0-31); Albumin Level 4.2 g/dL (3.5-5.0); Alkaline Phosphatase 111 U/L (39-117); Anion Gap 10 (12-20); Aspartate Amino Transferase 20 U/L (5-31); Blood Urea Nitrogen 14 mg/dL (9-16); Calcium 9.0 mg/dL (8.4-10.2); Carbon Dioxide 26 mmol/L (22-29); Chloride 106 mmol/L (96-108); Cholesterol 185 mg/dL (<200); Estimated Glomerular Filt Rate > 60; HDL Cholesterol 64 mg/dL (>40); Potassium 4.6 mmol/L (3.3-5.1); Sodium 137 mmol/L (135-145); Total Protein 7.1 g/dL (6.5-8.0); Triglycerides 122 mg/dL (<150)
[2025-07-10 15:09] LABS: Vitamin B12 438 pg/mL (200-900)
[2025-07-10 15:11] LABS: Ferritin 17 ng/mL (10-250)
== END 2025-07-10 10:28 | disposition home or self-care (01) ==
LOC: HO.HMGCLDS 10:27
PROVIDERS: PCP Internal Medicine; Visit Provider Internal Medicine
DX: Z00.01 Encounter for general adult medical examination with abnormal findings (principal); M05.79 Rheumatoid arthritis with rheumatoid factor of multiple sites without organ or systems involvement; E66.09 Other obesity due to excess calories; E55.9 Vitamin D deficiency, unspecified; R53.83 Other fatigue; Z68.34 Body mass index [BMI] 34.0-34.9, adult
CPT/HCPCS: 36415; 80053; 80061; 82306; 82607; 82728; 84443; 85025